=== PATIENT | female | born 1990 | race Caucasian/White ===

== ENCOUNTER 2017-04-13 18:04 | Emergency (ER) | payer MEDICAID ==
[~2017-04-13] VITALS: Ht 160 cm; Wt 124.1 kg
[~2017-04-13 18:04] MED LIST: IBUP-1222 PO; PREN1TAB52 PO; SERT25TA PO
[2017-04-13] MEDS ORDERED: SODIUM CHLORIDE FLUSH 10ML SYR IVF ONE (18:30)
[2017-04-13] MEDS ORDERED: SODIUM CHLORIDE 0.9% 1,000ML IVBOLUS ONE (18:30)
[2017-04-13 18:45] LABS: BLOOD UREA NITROGEN 12 mg/dL (7-18)
[2017-04-13] MEDS ORDERED: HYDROcodone/APAP 5/325 TABLET ONE (19:47)
[2017-04-13] MEDS ORDERED: METHYLERGONOVINE 0.2 MG/ML IM STA (19:52)
[2017-04-13] MEDS ORDERED: HYDROcodone/APAP 5/325 TABLET PO ONE (20:00)
[2017-04-13 20:22] VITALS: BP 127/78
== END 2017-04-13 20:36 | disposition home or self-care (01) ==
LOC: ED 20:15
DX: N92.1 Excessive and frequent menstruation with irregular cycle (principal); D50.9 Iron deficiency anemia, unspecified
CPT/HCPCS: 36415; 76830; 80048; 82040; 84703; 85025; 85610; 96372; 99285; J2210

== ENCOUNTER 2017-04-15 16:57 | Emergency (ER) | payer MEDICAID ==
[~2017-04-15] VITALS: Ht 160 cm; Wt 121.7 kg
[2017-04-15] MEDS ORDERED: MEDROXYPROGESTERONE ACETATE 5 MG TABLET PO SCH (18:00)
[2017-04-15] MEDS ORDERED: SODIUM CHLORIDE 0.9% 1,000ML IVBOLUS ONE (18:00)
[2017-04-15 19:47] VITALS: BP 147/55
== END 2017-04-15 20:00 | disposition home or self-care (01) ==
LOC: ED 19:30
DX: N92.1 Excessive and frequent menstruation with irregular cycle (principal); N92.0 Excessive and frequent menstruation with regular cycle; D62 Acute posthemorrhagic anemia
CPT/HCPCS: 36415; 84703; 85025; 86850; 86900; 96360; 99284; J7030

== ENCOUNTER → 2017-04-23 | Outpatient (CLI) | payer MEDICAID ==
[~2017-04-23] MED LIST changes: +FERR324T5 PO; +MEDR10TA3 PO; +METF500T4 PO
== END ==
LOC: STAR 12:58
PROVIDERS: ATTEND Obstetrics & Gynecology
DX: Z02.9 Encounter for administrative examinations, unspecified (principal)

== ENCOUNTER 2017-04-30 07:22 | Day surgery (SDC) | payer MEDICAID ==
[~2017-04-30] VITALS: Ht 160 cm; Wt 121.5 kg
[2017-04-30] MEDS ORDERED: LACTATED RINGERS 1,000 ML IV SCH (07:37)
[2017-04-30 07:38] VITALS: BP 125/78
[2017-04-30] MEDS ORDERED: FENTANYL PF 100 MCG/2ML ONE ×4 (07:49→08:25)
[2017-04-30] MEDS ORDERED: MIDAZOLAM 1 MG/ML, 2ML ONE ×3 (07:49)
[2017-04-30 08:02] LABS: HCG UR OBC PASS
[2017-04-30] MEDS ORDERED: METOCLOPRAMIDE 5 MG/ML, 2ML ONE (08:07)
[2017-04-30] MEDS ORDERED: ONDANSETRON 2MG/ML, 2ML ONE (08:07)
[2017-04-30] MEDS ORDERED: PROPOFOL 10 MG/ML, 20ML ONE (08:07)
[2017-04-30] MEDS ORDERED: KETOROLAC 30 MG/1 ML ONE (08:07)
[2017-04-30] MEDS ORDERED: DEXAMETHASONE 4 MG/ML, 1ML ONE (08:07)
[2017-04-30] MEDS ORDERED: DOXYCYCLINE 100 MG ONE (08:13)
[2017-04-30] MEDS ORDERED: ACETAMINOPHEN 325 MG TABLET ONE (08:46)
[2017-04-30] MEDS ORDERED: PROMETHAZINE 25 MG/ML, 1ML IV PRN (09:00)
[2017-04-30] MEDS ORDERED: FENTANYL PF 100 MCG/2ML IV PRN (09:00)
[2017-04-30] MEDS ORDERED: hydrALAzine 20 MG/ML, 1ML IV PRN (09:00)
[2017-04-30] MEDS ORDERED: HYDROmorphone 1 MG/ML, 1ML IV PRN (09:00)
[2017-04-30] MEDS ORDERED: LABETALOL 5MG/ML, 20ML IV PRN (09:00)
[2017-04-30] MEDS ORDERED: ACETAMINOPHEN 325 MG TABLET PO PRN (09:00)
[2017-04-30] MEDS ORDERED: ONDANSETRON 2MG/ML, 2ML IVPush PRN (09:00)
[2017-04-30] MEDS ORDERED: MEPERIDINE/PF 25MG/0.5ML IVPush PRN (09:00)
== END 2017-04-30 10:25 ==
LOC: OUT 07:22
PROVIDERS: ATTEND Obstetrics & Gynecology
DX: N84.0 Polyp of corpus uteri (principal); E28.2 Polycystic ovarian syndrome; Z88.6 Allergy status to analgesic agent
CPT/HCPCS: 58120; 58300; 81025; 88305; J1100; J1885; J2250; J2405; J2704; J2765; J3010; J7120; J7298